=== PATIENT | male | born 1965 | race Caucasian/White ===

== ENCOUNTER → 2017-02-28 | Outpatient (CLI) | payer OTHER ==
--- NOTE | 2017-02-28 12:15 | REP ---
Clinical: Shortness of breath . Comparison: None . Technique: PA and lateral. Findings: The mediastinum and cardiac silhouette are normal. The lung yoon are clear and without acute consolidation, effusion, or pneumothorax. The skeletal structures are intact and normal. Impression: 1. No acute cardiopulmonary process. Signed by Skinny Barreto MD 02/28/2017 12:07 P
== END ==
LOC: M SMT 11:46
PROVIDERS: ATTEND Internal Medicine Pulmonary Disease
DX: R06.02 Shortness of breath (principal)

== ENCOUNTER → 2017-03-14 | Outpatient (CLI) | payer OTHER ==
[~2017-03-14] MED LIST: METHACHOLINE KIT (J7674) INH ONE
--- NOTE | 2017-03-14 15:45 | PFTRPT ---
Tech: Sol Barber [employer] Age: 51 Sex: Male Race: Height: 69.75 Inches Weight: 249.00 Lbs BSA: 2.29 Diagnosis: R06.02 METHACHOLINE CHALLENGE REPORT: ORDERING PROVIDER: Waldo Viera MD DATE OF SERVICE: 03/14/17 INTERPRETATION: The study was of excellent technical quality. Under protocol, methacholine was administered. At a dose of 2.5 mg (13.875 CDUs), a 48% decline in the FEV1 was noted. The PC20 of 0.51. Flow rates returned to baseline post bronchodilator administration. IMPRESSION: Positive methacholine challenge study. MTDD
== END ==
LOC: M CARPUL 14:41
PROVIDERS: ATTEND Internal Medicine Pulmonary Disease
DX: R06.02 Shortness of breath (principal); R94.2 Abnormal results of pulmonary function studies

== ENCOUNTER 2017-09-25 12:00 | Inpatient (IN) | payer MEDICARE, OTHER ==
[~2017-09-25] VITALS: Ht 180.3 cm; Wt 110.2 kg
[2017-09-25] MEDS ORDERED: SIMV20TA2 PO (12:12)
[2017-09-25] MEDS ORDERED: BUPR300T34 PO (12:12)
[2017-09-25] MEDS ORDERED: GABA-279 PO (12:12)
[2017-09-25] MEDS ORDERED: BREO1INH3 INH (12:12)
[2017-09-25] MEDS ORDERED: LEVOTAB10 PO (12:12)
[2017-09-25] MEDS ORDERED: OMEP40CA2 PO (12:12)
[2017-09-25] MEDS ORDERED: VITA10002 PO (12:12)
[2017-09-25] MEDS ORDERED: BISO5TAB5 PO (12:12)
[2017-09-25] MEDS ORDERED: QUIN20TA17 PO (12:12)
[2017-09-25] MEDS ORDERED: TRIA37.53 PO (12:12)
[2017-09-25] MEDS ORDERED: BUSP1TAB PO (12:12)
[2017-09-25] MEDS ORDERED: SILD50TA PO (12:12)
[2017-09-25 13:14] LABS: BASO % 0.3 % (0.0-1.0); EOS # 0.1 10^3/uL (0.0-0.50); EOS % 0.5 % (0.0-3.0); IMMATURE GRANULOCYTE % 0.3 % (0-0); LYMPH # 1.5 10^3/uL (1.5-4.5); LYMPH % 11.3 % (24.0-44.0); MEAN CORPUSCULAR HEMOGLOBIN 31.8 pg (27.0-33.0); MEAN CORPUSCULAR HGB CONC 33.9 g/dl (32.0-36.5); MEAN CORPUSCULAR VOLUME 93.7 fl (80.0-96.0); MONO # 1.4 10^3/uL (0.0-0.8); MONO % 10.1 % (0.0-5.0); NEUTROPHILS # 10.4 10^3/uL (1.8-7.7); NEUTROPHILS % 77.5 % (36.0-66.0); PLATELET COUNT, AUTOMATED 213 10^3/uL (150-450); RED CELL DISTRIBUTION WIDTH 13.1 % (11.5-14.5); WHITE BLOOD COUNT 13.4 10^3/uL (4.0-10.0)
[2017-09-25 13:31] LABS: ALBUMIN 3.5 GM/DL (3.2-5.2); ALBUMIN/GLOBULIN RATIO 0.76 (1.00-1.93); ALKALINE PHOSPHATASE 108 U/L (45-117); ALT/SGPT 33 U/L (12-78); ANION GAP 7 MEQ/L (8-16); AST/SGOT 17 U/L (7-37); BILIRUBIN,TOTAL 0.5 MG/DL (0.2-1.0); BLOOD UREA NITROGEN 11 MG/DL (7-18); CALCIUM LEVEL 8.5 MG/DL (8.5-10.1); CARBON DIOXIDE LEVEL 30 MEQ/L (21-32); CHLORIDE LEVEL 99 MEQ/L (98-107); CREATININE FOR GFR 1.15 MG/DL (0.70-1.30); GLOMERULAR FILTRATION RATE > 60.0 (>60); GLUCOSE, FASTING 100 MG/DL (70-105); POTASSIUM SERUM 3.7 MEQ/L (3.5-5.1); SODIUM LEVEL 136 MEQ/L (136-145); TOTAL PROTEIN 8.1 GM/DL (6.4-8.2)
[2017-09-25 13:36] LABS: ERYTHROCYTE SEDIMENTATION RATE 108 mm/hr (0-15)
--- NOTE | 2017-09-25 13:45 | REP ---
Right foot four views: There are no comparisons. There is soft tissue edema of the great toe and great toe metatarsal. There is afocal soft tissue air collection at the great toe MTP articulation along the plantar surface accompanied by soft tissue edema, compatible with ulcer. There are no lytic, blastic or destructive skeletal changes to suggest osteoarthritis. There is surgical arthrodesis with stabilization plate across the great toe MTP articulation and across the second digit TM T articulation. There is marked great toe TMT joint deformity chronic 2nd digit TMT joint deformity. deformity. Some of the orthopedic screws in the stabilization plate across the second digit TM T are fractured. There are lucencies throughout the tarsal ossicles of uncertain significance, possibly old orthopedic screw tracts. Signed by Dany Amador MD 09/25/2017 01:37 P
[2017-09-25] MEDS ORDERED: CEFEPIME HCL 2 GM in APPROPRIATE DILUENT 1 EA IV ONE (14:00)
[2017-09-25] MEDS ORDERED: MORPHINE 2 MG/ML 1ML SYRINGE IV PRN (14:30)
[2017-09-25] MEDS ORDERED: ACETAMINOPHEN TAB 650MG DOSE (2X325MG) PO PRN (14:30)
[2017-09-25] MEDS ORDERED: PERCOCET 5MG/325MG TAB PO PRN (14:30)
[2017-09-25] MEDS ORDERED: ONDANSETRON 4MG/2ML VIAL (J2405) IV PRN (14:30)
[2017-09-25] MEDS ORDERED: BISACODYL 5 MG TAB PO PRN (14:30)
[2017-09-25] MEDS ORDERED: LINEZOLID 600 MG in APPROPRIATE DILUENT 1 EA IV ONE (15:00)
[2017-09-25] MEDS ORDERED: GABA-282 PO (15:01)
[2017-09-25] MEDS ORDERED: ACET50TAOT PO (15:02)
--- NOTE | 2017-09-25 16:45 | HPE ---
DATE OF ADMISSION: 09/25/2017 PRIMARY CARE PROVIDER: Woody Mari CHIEF COMPLAINT: Right toe pain, ulcers, swelling, fever. HISTORY OF PRESENT ILLNESS: This is a 51-year-old male with a history of Charcot joint, nondiabetic, chronic osteomyelitis of the right foot and ankle and [place] [address] Mare Dougherty with reaction to vancomycin causing Red Man syndrome, who presents to the emergency room with increasing pain, discharge, swelling and redness of the right big toe, plantar area with involvement of the dorsal foot over the past 3 days, since Tuesday. The patient had a fever of 101 at home with chills, unable to ambulate due to severe pain with some serosanguineous drainage, prompting him to present to the emergency room. He denies any recent history of trauma and usually follows with an orthopedic surgeon in [place] at [facility]. The patient has had an open ulcer for the past 6 weeks, previously seen in early August by his surgeon, thought to be clean, did not require debridement at that time. In the emergency room, he was found to be afebrile. White count was 13,000, sedimentation rate of 108, and C-reactive protein of 10. The hospitalist service was called for admission for right toe cellulitis, rule out osteomyelitis due to chronic ulcer with history of methicillin resistant Staphylococcus aureus (MRSA) osteomyelitis in the past. PAST MEDICAL HISTORY: 1. Chronic osteomyelitis of the ankle and foot with MRSA. 2. Hypertension. 3. Depression. 4. Charcot joint of the foot, nondiabetic. 5. MRSA. 6. Hypertension. 7. Osteomyelitis of the right foot. 8. Reflux. 9. Nephrolithiasis. 10. Peripheral neuropathy. 11. Umbilical hernias with repair by Dr. Becker and Dr. Daley for the second surgery. PAST SURGICAL HISTORY: 1. Cholecystectomy. 2. Inguinal hernia repair. 3. Umbilical hernia repair. 4. Sinus surgery. 5. Gallbladder surgery. 6. Appendectomy. 7. Hernia repair. 8. Kidney stone. ADVERSE REACTION: VANCOMYCIN causing Red Man syndrome at [facility] in December 2012. HOME MEDICATIONS: - acetaminophen 1500 mg as needed for pain - bisoprolol 2.5 mg daily - bupropion 300 mg daily - buspirone 7.5 mg daily - B12 1000 mcg daily - gabapentin 300 mg twice a day - hydrochlorothiazide/triamterene one tablet daily, 37.5/25 mg - omeprazole 40 mg daily - quinapril 20 mg twice a day - simvastatin 20 mg at night - Breo Ellipta one inhalation daily - Levocetirizine 5 mg at night - sildenafil as needed SOCIAL HISTORY: Denies social alcohol use. Denies history of smoking. Currently on disability. FAMILY HISTORY: Father and mother are both . 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 REVIEW OF SYSTEMS: As per history of present illness. 12-point system otherwise negative. PHYSICAL EXAMINATION: VITAL SIGNS: Temperature 97.7, pulse 74, respiratory rate 18, blood pressure 130/86, 98% on room air. GENERAL: Awake, alert, oriented times three. Answering questions appropriately. No respiratory distress, cyanosis. Moist mucous membranes. No jugular venous distention (JVD) or thyromegaly. Pupils are round and reactive to light and accommodation. Extraocular muscles are intact. Normocephalic, atraumatic. Anicteric sclerae. No jaundice. NECK: Supple. Full range of motion. No cervical lymphadenopathy or thyromegaly. LUNGS: Clear to auscultation. No wheezing, rales or rhonchi. HEART: S1, S2. Sinus rhythm. No murmurs, rubs or gallops. ABDOMEN: Soft, nontender, nondistended. Positive bowel sounds times four quadrants. No rebound, guarding. EXTREMITIES: The patient has erythematous 2 cm ulcer noted on the plantar aspect of the first metatarsal joint. There is significant erythema and induration. Limited range of motion due to severe pain. Serosanguineous drainage of the site. LABORATORY DATA: White count 13.4, hemoglobin 15, hematocrit 46, platelet count 213. Sodium 136, potassium 3.7, chloride 99, bicarbonate 30, BUN 11, creatinine 1.15, glucose of 100, magnesium 2, calcium 8.5, total bilirubin 0.5, direct bilirubin 0.5, AST 17, ALT 33, alkaline phosphatase 108, C-reactive protein is 10, total protein 8.1, albumin 3.5. INR 1. IMAGING STUDIES: Foot x-ray showed soft tissue edema of the great toe and great toe metatarsal. Focal soft tissue air collection of the great toe metatarsophalangeal articulation along the plantar surface with soft tissue edema, compatible with ulcer. No lytic, blastic or dystrophic skeletal changes to suggest osteoarthritis. Surgical arthrocentesis with stabilization, plate across the great toe MTP articulation and across the second digit tarsometatarsal (TMT) articulation, marked great toe TMT joint deformity. Chronic second digit TMT joint deformity. Orthopedic screws and stabilization plate across the second digit TMT fracture. ASSESSMENT AND PLAN: This is a 51-year-old male with a history of chronic osteomyelitis of the ankle and foot, treated for methicillin resistant Staphylococcus aureus (MRSA) in [address] Mare Dougherty and orthopedic surgeon in [place]. Charcot joint deformity, nondiabetic, hypertension, depression, MRSA, inguinal hernia repair, kidney stones, who presents to the emergency room with fever, increasing erythema, redness, edema of right metatarsophalangeal joint with possible fractured plate from previous orthopedic stabilization. CURRENT ISSUES: 1. Right foot ulcer with cellulitic changes r/o abscess/osteomyelitis. Drill Press Operator, Dr. Slater, has been consulted for debridement and stabilization. Currently on Zyvox. Consult Dr. Mare Dougherty due to history of MRSA infection and chronic osteomyelitis, unable to get a MRI due to metal plate and screws in the right toe. 2. Hypertension. Resume home dose of Norvasc. May resume diuretics in the morning if no signs of dehydration. Continue on Zebeta. Well controlled at this time. 3. Depression. Resume Wellbutrin. 4. Dyslipidemia. Continue Simvastatin. 5. Charcot joint deformity of the right foot. DVT prophylaxis MTDD
[2017-09-25 17:35] VITALS: BP 128/78
--- NOTE | 2017-09-25 19:41 | ECGEPIP ---
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
[2017-09-25] MEDS: GABAPENTIN 300 MG CAP PO SCH (20:25)
[2017-09-25] MEDS: LINEZOLID 600MG TABLET (ZYVOX) PO SCH (20:25)
[2017-09-25] MEDS: SIMVASTATIN 20 MG TAB PO SCH (20:25)
[2017-09-25] MEDS: BREO ELLIPTA (PATIENT'S OWN MED) INH SCH (21:00)
[2017-09-25] MEDS: QUINAPRIL 20 MG TAB PO SCH (21:02)
[2017-09-25 22:00] VITALS: BP 117/61
[2017-09-26 06:00] VITALS: BP 117/69
[2017-09-26 07:03] LABS: BASO % 0.4 % (0.0-1.0); EOS # 0.2 10^3/uL (0.0-0.50); EOS % 2.1 % (0.0-3.0); IMMATURE GRANULOCYTE % 0.2 % (0-0); LYMPH # 1.5 10^3/uL (1.5-4.5); LYMPH % 16.2 % (24.0-44.0); MEAN CORPUSCULAR HEMOGLOBIN 31.5 pg (27.0-33.0); MEAN CORPUSCULAR HGB CONC 33.8 g/dl (32.0-36.5); MEAN CORPUSCULAR VOLUME 93.2 fl (80.0-96.0); MONO # 1.2 10^3/uL (0.0-0.8); NEUTROPHILS # 6.2 10^3/uL (1.8-7.7); NEUTROPHILS % 68.1 % (36.0-66.0); PLATELET COUNT, AUTOMATED 188 10^3/uL (150-450); WHITE BLOOD COUNT 9.1 10^3/uL (4.0-10.0)
[2017-09-26 07:31] LABS: ANION GAP 7 MEQ/L (8-16); BLOOD UREA NITROGEN 12 MG/DL (7-18); CALCIUM LEVEL 8.4 MG/DL (8.5-10.1); CARBON DIOXIDE LEVEL 29 MEQ/L (21-32); CHLORIDE LEVEL 101 MEQ/L (98-107); CREATININE FOR GFR 0.93 MG/DL (0.70-1.30); GLOMERULAR FILTRATION RATE > 60.0 (>60); GLUCOSE, FASTING 104 MG/DL (70-105); SODIUM LEVEL 137 MEQ/L (136-145)
[2017-09-26] MEDS: QUINAPRIL 20 MG TAB PO SCH ×2 (07:49→20:21)
[2017-09-26] MEDS: buPROPion **XL** TABLET 150MG (WELLBUTRIN XL) PO SCH (07:50)
[2017-09-26] MEDS: busPIRone 5 MG TAB PO SCH (07:50)
[2017-09-26] MEDS: CYANOCOBALAMIN 500 MCG TAB PO SCH (07:50)
[2017-09-26] MEDS: OMEPRAZOLE 20 MG CAP PO SCH (07:50)
[2017-09-26] MEDS: GABAPENTIN 300 MG CAP PO SCH ×2 (07:50→20:22)
[2017-09-26] MEDS: LINEZOLID 600MG TABLET (ZYVOX) PO SCH ×2 (07:51→20:21)
[2017-09-26] MEDS: BISOPROLOL FUM 2.5 MG PER 1/2TAB PO SCH (07:51)
[2017-09-26] MEDS: BREO ELLIPTA (PATIENT'S OWN MED) INH SCH ×2 (09:00→20:23)
[2017-09-26] MEDS: FLUTICASONE PROP 0.05% NASAL SPRAY 16 GM (FLONASE) SCH (09:00)
[2017-09-26] MEDS ORDERED: PROHANCE 279.3MG/ML 5ML VIAL (A9576) As Ordered ONE (12:49)
[2017-09-26] MEDS ORDERED: PROHANCE 279.3MG/ML 15ML VIAL (A9576) As Ordered ONE (12:49)
[2017-09-26 14:00] VITALS: BP 119/64
[2017-09-26] MEDS: SILVER SULFADIAZINE 1% CR 50 GM JAR TOP SCH ×2 (14:23→20:22)
--- NOTE | 2017-09-26 14:57 | CR ---
DATE OF CONSULTATION: 09/25/2017 CHIEF COMPLAINT: Patient seen for evaluation of a swollen and infected ulceration on the plantar surface of his right foot. The patient states he has had his ulceration for approximately 4-5 weeks. He has had a custom molded shoe fabricated approximately 4 weeks ago to help offload this ulcer on the plantar surface of his right foot. The patient has a history of surgical correction of his right foot, approximately 4 years ago where he had a 1st metatarsal phalangeal joint fusion as well as a second metatarsal cuneiform joint fusion. The patient states several days ago he notice a feeling of not feeling well with temperature. He subsequently went to the emergency room and was admitted for right foot infection. PAST MEDICAL HISTORY: History of chronic osteomyelitis with Methicillin-resistant Staphylococcus aureus (MRSA). Hypertension. Depression. Charcot joint disease. Reflux. Nephrolithiasis. Diabetic peripheral neuropathy. PAST SURGICAL HISTORY: Cholecystectomy. Inguinal hernia repair. Umbilical hernia repair. Sinus surgery. Gallbladder surgery. Appendectomy. Hernia repair. Kidney stone surgery. HOME MEDICATIONS: - acetaminophen - bisoprolol 2.5 mg daily - bupropion 300 mg daily - B12 - gabapentin 300 mg twice a day - hydrochlorothiazide/triamterene 37.5/25 - omeprazole 40 mg daily - quinapril 20 mg twice a day - simvastatin 20 mg at night - Breo Ellipta one inhalation daily - levocetirizine 5 mg at night SOCIAL HISTORY: Denies smoking. PHYSICAL EXAMINATION: Revealed an alert, well orientated 51-year-old male in no acute distress. Evaluation of his foot reveals an ulceration present on the plantar surface of the foot. There is some surrounding erythema around this ulceration. The ulceration is inferior to the first metatarsal head measuring 8 mm from medial to lateral, 12 mm from distal to proximal. It probes 11 mm down to the sesamoids. Hyperkeratotic rim measures approximately 6 mm. There is minimal discharge. Laboratory studies were reviewed revealing a white count of 13.4, ESR of 108, C-reactive protein of 10.4, and a glomerular filtration rate (GFR) greater than 60. X-rays were reviewed revealed air in the subcutaneous tissues inferior to the first metatarsal. There is no cystic erosions present of the sesamoid or 1st metatarsal phalangeal joint fusion site. There is fractured orthopedic screws through the plate, however the plate is intact. Plate is similarly intact over a 2nd metatarsal cuneiform joint effusions with fractured screws. There is a nonunion between the 2nd metatarsal cuneiform joint and the 1st metatarsal medial cuneiform with Charcot joint changes across the 1st, 2nd and 3rd metatarsal cuneiform joints. ASSESSMENT: 1. Infected stage IV ulceration, right foot, possible osteomyelitis. 2. Charcot joint deformity right foot. PLAN: After appropriate time out, informed consent was obtained. Utilizing a sterile scalpel and sterile curette, the ulcer was debrided through the subcutaneous tissues and culture was obtained. A sterile dressing was applied to the patient's right foot. The patient is presently pending an MRI of his right foot. We have discussed with the patient, depending on his MRI will determine his treatment options. The MRI is scheduled for tomorrow. His questions were answered. Thank you for this consultation.
--- NOTE | 2017-09-26 15:59 | REP ---
MRI RIGHT FOOT WITH AND WITHOUT CONTRAST: Multiple sequences obtained in the axial, coronal, and sagittal planes prior to and following the intravenous administration of 21 mL ProHance. Correlation made with plain films from 09/25/2017. Metallic plate and screws are seen in the distal first metatarsal and in the first proximal phalanx, as well as in the proximal half of the second metatarsal and adjacent middle cuneiform. This causes metallic artifact somewhat limiting evaluation of underlying osseous structures. No definite abnormal marrow signal is seen in this region that would suggest the presence of acute osteomyelitis. Hindfoot arthritic change is noted with subchondral marrow edema and cystic change along the talocalcaneal joint and at the tarsal/metatarsal joints. There are diffuse ill-defined edema in the soft tissues of the foot. There are areas of ill-defined enhancement in the medial forefoot compatible with cellulitis. No definite abscess collection is seen. Visualized tendons and ligaments appear intact with no tenosynovitis. IMPRESSION: Soft tissue edema and cellulitis predominantly medially in the forefoot. No definite abscess or evidence of osteomyelitis, although this study is somewhat limited due to metallic artifact in the region of metallic internal fixation in the first and second metatarsals. Signed by Dany Storm MD 09/26/2017 05:59 P
[2017-09-26 16:00] VITALS: BP 124/58
--- NOTE | 2017-09-26 17:16 | IPNPDOC ---
Text Note Date of Service The patient was seen on 09/26/17. NOTE Hospitalist Progress Note Subjective: The patient is sitting in a hospital bed, he is in no acute distress. He states that he has no complaints other than erythema, and, and ulceration of the right foot, along with fevers. He denies any chills, night sweats, rigors. He denies any shortness of breath, wheezing, palpitations, chest discomfort. He denies nausea, vomiting, diarrhea. The remainder of his review of systems is entirely negative. Objective: General: Awake, alert, oriented. He is in no acute distress. HEENT: Head normocephalic, atraumatic, sclera are nonicteric. Hearing is grossly intact to conversation. Respiratory: Clear to auscultation bilaterally with no wheezes, rales, or rhonchi. Cardiovascular: Regular rate and rhythm, with no rubs, gallops, or murmur. Abdomen: Soft, nontender, nondistended, no hepatosplenomegaly appreciated. Bowel sounds present. Extremities: 2+ pulses in the radial and dorsalis pedis bilaterally. He does have a right foot Charcot deformity. Right foot does have an ulcer now the head of the first metatarsal approximately 1 cm in diameter. Imaging: MRI does show soft tissue edema and cellulitis in the right forefoot, however there is no definite abscess or evidence of osteomyelitis, although the study is somewhat limited due to metallic artifact, please see report for full details. Microbiology: Preliminary wound cultures are positive for Staphylococcus aureus and Streptococcus group G, anaerobic culture is still pending. MRSA screen is negative. Blood cultures show no growth after 24 hours Assessment: 1. Cellulitis of the right foot 2. Pressure ulcer, right foot, likely the source of his infection 3. Hypertension 4. Depression 5. Dyslipidemia 6. Charcot deformity of right foot 7. Leukocytosis 8. Elevated ESR 9. DVT prophylaxis with Lovenox Plan: We'll continue his Zyvox at this time until susceptibilities are available. The patient has had 2 episodes of red man syndrome, and the second episode he was pretreated with Benadryl and the IV was ran quite slowly, and then the reaction occurred a few hours later anyway, there this cannot be used any longer. Sedimentation rate has significantly improved, leukocytosis has now resolved. If he does continue to improve clinically, then I suspect that we may be able to narrow his antibiotic when susceptibilities are available and he can continue treatment outpatient. My preceptor for this patient encounter was physically present in the building during the encounter and was fully available. As needed, all aspects of the patient interview, examination, medical decision making process, and medical care plan development were reviewed and approved by the preceptor. Preceptor is aware and concurs with the plan as stated in the body of this note and will attest to such by his/her cosignature. VS,Demetriusbone, I+O VS, Demetriusbone, I+O Laboratory Tests 09/26/17 06:16 Red Blood Count 4.44, Mean Corpuscular Volume 93.2, Mean Corpuscular Hemoglobin 31.5, Mean Corpuscular Hemoglobin Concent 33.8, Red Cell Distribution Width 13.0 , Neutrophils (%) (Auto) 68.1 H, Lymphocytes (%) (Auto) 16.2 L, Monocytes (%) ( Auto) 13.0 H, Eosinophils (%) (Auto) 2.1, Basophils (%) (Auto) 0.4, Neutrophils # (Auto) 6.2, Lymphocytes # (Auto) 1.5, Monocytes # (Auto) 1.2 H, Eosinophils # (Auto) 0.2, Basophils # (Auto) 0.0, Calcium Level 8.4 L Vital Signs Date Time Temp Pulse Resp B/P (MAP) Pulse Ox O2 Delivery O2 Flow Rate FiO2 09/26/17 17:00 98.5 09/26/17 16:00 74 16 124/58 (80) 97 Room Air ROSSY JAMES DO Sep 26, 2017 17:15
[2017-09-26] MEDS: SIMVASTATIN 20 MG TAB PO SCH (20:21)
[2017-09-26 22:00] VITALS: BP 131/68
[2017-09-27 06:00] VITALS: BP 116/57
[2017-09-27 06:55] LABS: MEAN CORPUSCULAR HEMOGLOBIN 31.9 pg (27.0-33.0); MEAN CORPUSCULAR HGB CONC 34.2 g/dl (32.0-36.5); MEAN CORPUSCULAR VOLUME 93.2 fl (80.0-96.0); PLATELET COUNT, AUTOMATED 209 10^3/uL (150-450); WHITE BLOOD COUNT 6.3 10^3/uL (4.0-10.0)
[2017-09-27 07:22] LABS: ANION GAP 7 MEQ/L (8-16); BLOOD UREA NITROGEN 14 MG/DL (7-18); CALCIUM LEVEL 8.4 MG/DL (8.5-10.1); CARBON DIOXIDE LEVEL 29 MEQ/L (21-32); CHLORIDE LEVEL 103 MEQ/L (98-107); CREATININE FOR GFR 0.93 MG/DL (0.70-1.30); GLOMERULAR FILTRATION RATE > 60.0 (>60); GLUCOSE, FASTING 109 MG/DL (70-105); POTASSIUM SERUM 4.1 MEQ/L (3.5-5.1); SODIUM LEVEL 139 MEQ/L (136-145)
[2017-09-27 07:30] LABS: ERYTHROCYTE SEDIMENTATION RATE 107 mm/hr (0-15)
[2017-09-27] MEDS: QUINAPRIL 20 MG TAB PO SCH ×2 (08:27→21:31)
[2017-09-27] MEDS: busPIRone 5 MG TAB PO SCH (08:27)
[2017-09-27] MEDS: CYANOCOBALAMIN 500 MCG TAB PO SCH (08:28)
[2017-09-27] MEDS: OMEPRAZOLE 20 MG CAP PO SCH (08:28)
[2017-09-27] MEDS: buPROPion **XL** TABLET 150MG (WELLBUTRIN XL) PO SCH (08:28)
[2017-09-27] MEDS: BISOPROLOL FUM 2.5 MG PER 1/2TAB PO SCH (08:28)
[2017-09-27] MEDS: GABAPENTIN 300 MG CAP PO SCH ×2 (08:28→21:32)
[2017-09-27] MEDS: LINEZOLID 600MG TABLET (ZYVOX) PO SCH ×2 (08:29→21:32)
[2017-09-27] MEDS: BREO ELLIPTA (PATIENT'S OWN MED) INH SCH ×2 (08:33→21:00)
[2017-09-27] MEDS: FLUTICASONE PROP 0.05% NASAL SPRAY 16 GM (FLONASE) SCH (08:33)
[2017-09-27] MEDS: SILVER SULFADIAZINE 1% CR 50 GM JAR TOP SCH ×2 (08:34→21:33)
[2017-09-27] MEDS: ENOXAPARIN 40 MG/0.4 ML SYRINGE (J1650) SC SCH (08:36)
--- NOTE | 2017-09-27 10:58 | IPN ---
DATE OF SERVICE: 09/27/2017 SUBJECTIVE: The patient tells me that he is feeling well and has no complaints at this time. He tells me that he did have a fever overnight. OBJECTIVE: Vital signs: T-max 101.3, temperature 98.9, pulse 70, respiratory rate 18, blood pressure 115/57, oxygen saturation 97% on room air. General: He is a pleasant, middle-aged man lying in bed comfortably at a 40 degree angle in no distress. HEENT: Cranial nerves II-XII grossly intact. He has moist mucous membranes and elevation of CVP. Cardiovascular: S1, S2, regular. Respiratory exam: Clear. Abdominal exam: Grossly obese. Extremities: No clubbing, cyanosis or edema. He has chronic deformity on the distal lower extremity of the Charcot joint. He has recently debrided first metatarsal ulcer which is erythematous and swollen and malodorous. LABORATORY STUDIES: WBC 6.3, hemoglobin 14, platelet count 209. Erythrocyte sedimentation rate 107. Chemistry panel: Sodium 139, potassium 4.1, chloride 103, bicarbonate 29, BUN 14, creatinine 0.9. Microbiology: Wound cultures preliminarily positive for staphylococcus aureus and group G strep. Sensitive to Bactrim. An MRI of the foot completed yesterday revealed cellulitis. No definite abscess or evidence of osteomyelitis. ASSESSMENT AND PLAN: This is a 51-year-old man with cellulitis of the right first metatarsal. PROBLEMS: 1. Cellulitis of the right first metatarsal. MRI is negative. Dr. Slater, podiatry help is greatly appreciated. The patient is status post debridement. The patient is afebrile. We are awaiting final cultures and sensitivities from Dr. Slater's wound culture. I suspect if there is staphylococcus and strep sensitive to Bactrim, he could likely be transitioned to this and be discharged home to complete a 10 day course of oral antibiotics as early as tomorrow provided his fever resolves. 2. Hypertension. Continue with bisoprolol and quinapril. 3. Anxiety. Continue with Wellbutrin and BuSpar. 4. B12 deficiency. Continue with supplementation. 5. Gastroesophageal reflux disease, continue with omeprazole. 6. Neuropathy, continue with Neurontin. 7. Dyslipidemia. The patient is on Zocor. DISPOSITION: Likely home within the next 24-48 hours.
[2017-09-27 16:00] VITALS: BP 147/80
[2017-09-27] MEDS: SIMVASTATIN 20 MG TAB PO SCH (21:32)
[2017-09-27 22:00] VITALS: BP 123/74
[2017-09-28 06:00] VITALS: BP 117/71
[2017-09-28 06:57] LABS: MEAN CORPUSCULAR HEMOGLOBIN 31.5 pg (27.0-33.0); MEAN CORPUSCULAR HGB CONC 34.1 g/dl (32.0-36.5); MEAN CORPUSCULAR VOLUME 92.1 fl (80.0-96.0); PLATELET COUNT, AUTOMATED 216 10^3/uL (150-450); RED CELL DISTRIBUTION WIDTH 12.8 % (11.5-14.5); WHITE BLOOD COUNT 6.1 10^3/uL (4.0-10.0)
[2017-09-28] MEDS ORDERED: SILV50CR TOP (06:57)
[2017-09-28] MEDS ORDERED: BACT800T5 PO (06:57)
[2017-09-28 07:06] LABS: ANION GAP 7 MEQ/L (8-16); BLOOD UREA NITROGEN 11 MG/DL (7-18); CALCIUM LEVEL 8.4 MG/DL (8.5-10.1); CARBON DIOXIDE LEVEL 30 MEQ/L (21-32); CHLORIDE LEVEL 105 MEQ/L (98-107); CREATININE FOR GFR 0.82 MG/DL (0.70-1.30); GLOMERULAR FILTRATION RATE > 60.0 (>60); GLUCOSE, FASTING 96 MG/DL (70-105); POTASSIUM SERUM 4.2 MEQ/L (3.5-5.1); SODIUM LEVEL 142 MEQ/L (136-145)
[2017-09-28 07:48] LABS: ERYTHROCYTE SEDIMENTATION RATE 35 mm/hr (0-15)
--- NOTE | 2017-09-28 08:06 | IPN ---
DATE: 09/26/2017 TIME: 7:08 p.m. CHIEF COMPLAINT: The patient is seen today for evaluation of an ulceration with infection plantar aspect of the right foot. PHYSICAL EXAMINATION: The bandage was removed today. There is no active drainage from the wound. There is some serous discharge noted on the bandage. The ulcer measures approximately 9 mm from medial to lateral. It is 13 mm from distal to proximal. Upon compression of the wound, there is no abscess formation or drainage from the wound itself. MRI was reviewed which was negative for osteomyelitis. The mycobacteriology studies were reviewed, revealing growth of Staphylococcus aureus and group G strep, which is similar to the swab culture taken from the foot on the same day. The staphylococcus is resistant to penicillin G. The tissue culture reveals growth of Staphylococcus aureus and group G strep, but is not plated for sensitivity. There is anaerobic culture pending. ASSESSMENT: Improved stage IV ulceration plantar surface right foot, resolving cellulitis. PLAN: We discussed with the patient being converted to oral antibiotics once his cultures are available. The patient has an excellent diabetic shoe which is less than a month old. This can be offloaded to additionally offload his ulcer. His questions were answered.
[2017-09-28] MEDS: OMEPRAZOLE 20 MG CAP PO SCH (09:05)
[2017-09-28] MEDS: busPIRone 5 MG TAB PO SCH (09:05)
[2017-09-28] MEDS: CYANOCOBALAMIN 500 MCG TAB PO SCH (09:05)
[2017-09-28] MEDS: GABAPENTIN 300 MG CAP PO SCH (09:05)
[2017-09-28] MEDS: LINEZOLID 600MG TABLET (ZYVOX) PO SCH (09:06)
[2017-09-28] MEDS: BISOPROLOL FUM 2.5 MG PER 1/2TAB PO SCH (09:06)
[2017-09-28] MEDS: buPROPion **XL** TABLET 150MG (WELLBUTRIN XL) PO SCH (09:06)
[2017-09-28] MEDS: BREO ELLIPTA (PATIENT'S OWN MED) INH SCH (09:09)
[2017-09-28] MEDS: SILVER SULFADIAZINE 1% CR 50 GM JAR TOP SCH (09:09)
[2017-09-28] MEDS: FLUTICASONE PROP 0.05% NASAL SPRAY 16 GM (FLONASE) SCH (09:10)
[2017-09-28] MEDS: ENOXAPARIN 40 MG/0.4 ML SYRINGE (J1650) SC SCH (09:15)
[2017-09-28 10:47] VITALS: BP 123/77
[2017-09-28] MEDS: QUINAPRIL 20 MG TAB PO SCH (10:47)
--- NOTE | 2017-09-28 14:07 | DS.PDOC ---
Discharge Summary General Date of Admission Sep 25, 2017 at 14:29 Date of Discharge Sep Attending Physician: DEBORAH GOSS DO Specialist/Consultants Involve: Uriel Slater Specialist/Consultants Involve PCP: Woody Mari / Kathryn Saldana PA-C Discharge Summary CONSULTS: Uriel Slater PROCEDURES: None COMPLICATIONS: None ADMISSION / DISCHARGE DIAGNOSIS: 1. Cellulitis of the right first metatarsal. MRI is negative for Osteomyelitis. 2. Hypertension 3. Anxiety 4. B12 deficiency 5. Gastroesophageal reflux disease 6. Neuropathy 7. Dyslipidemia. BRIEF HOSPITAL COURSE: 51 yo male admitted for cellulitis involving area of right foot over known charcot joint. 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 Admitted for IV antibiotics, Podiatry consult and MRI. MRI was negative for osteomyelitis, WBC normalized, downward trend of ESR/CRP noted, wound cultures Staph Aureus, Group G Strep, and Strept Infanarius. Patient remained afebrile and wound/cellulitis seemed to improved with treatment and wound dressings using Silvadene cream. Appreciated input from . Antibiotics de-escalated to Bactrim DS bid for 10 more days, and appropriate follow up appointments were made. PHYSICAL EXAMINATION ON DISCHARGE: VITAL SIGNS: Please see below. GENERAL: NAD, A&OX3 HEENT: PERRLA, throat clear, neck supple, no JVD CARDIOVASCULAR EXAMINATION: RRR RESPIRATORY EXAMINATION: CTA bilaterally ABDOMINAL EXAMINATION: soft, NT/ND, normoactive bowel sounds EXTREMITIES: no edema no calf tenderness SKIN: intact, wound non draining and erythema almost completely resolved. NEUROLOGICAL EXAMINATION: CN'S II-XII grossly intact PSYCHIATRIC EXAMINATION: stable DISCHARGE MEDICATIONS: See below DISCHARGE CONDITION: GOOD DISPOSITION: DISCHARGE TO HOME DISCHARGE INSTRUCTIONS: Activity: As tolerated Diet: Regular Follow up: Dr. Sheppard tomorrow, Dr. Slater one week and PCP: Kathryn Saldana PA-C 1-2 weeks Seek medical attention should symptoms worsen or progress. Voiced understanding by patient and/or caregiver. TRANSITION OF CARE ISSUES: re-eval of wound and foot by Dr. Sheppard and Dr. Slater respectively. TIME SPENT ON DISCHARGE: greater than 35 minutes Please CC: Dr. Silver Saldana PA-C Vital Signs/I&Os Vital Signs Date Time Temp Pulse Resp B/P (MAP) Pulse Ox O2 Delivery O2 Flow Rate FiO2 09/28/17 10:47 123/77 09/28/17 09:06 73 09/28/17 06:00 98.8 16 99 Room Air I&O- Last 24 Hours up to 6 AM 09/28/17 06:00 Intake Total 2560 ml Output Total 300 ml Balance 2260 ml Laboratory Data Labs 24H Laboratory Tests 2 09/28/17 06:03: Nucleated Red Blood Cells % (auto) 0.0, Erythrocyte Sedimentation Rate 35H, Anion Gap 7L, Glomerular Filtration Rate > 60.0, Blood Urea Nitrogen 11, Creatinine 0.82, Sodium Level 142, Potassium Level 4.2, Chloride Level 105, Carbon Dioxide Level 30, Calcium Level 8.4L CBC/BMP Laboratory Tests 09/28/17 06:03 Red Blood Count 4.45, Mean Corpuscular Volume 92.1, Mean Corpuscular Hemoglobin 31.5, Mean Corpuscular Hemoglobin Concent 34.1, Red Cell Distribution Width 12.8 , Calcium Level 8.4 L Microbiology Microbiology 09/25/17 Blood Culture - Preliminary, Resulted No Growth after 72 hours. All specime... 09/25/17 Blood Culture - Preliminary, Resulted No Growth after 72 hours. All specime... 09/25/17 MRSA Screen - Final, Complete 09/25/17 Wound Culture - Preliminary, Resulted Staphylococcus Aureus Streptococcus Group G Streptococcus Infantarius Infa 09/25/17 Anaerobic Culture, Resulted Pending 09/25/17 Wound Culture - Final, Complete Staphylococcus Aureus Streptococcus Group G Streptococcus Infantarius Infa Discharge Medications Scheduled Bisoprolol Fumarate (Bisoprolol Fumarate) 5 Mg Tab, 2.5 MG PO DAILY, (Reported) Bupropion HCl (Bupropion HCl Xl) 300 Mg Tab, 300 MG PO DAILY, (Reported) Buspirone HCl (Buspirone HCl) 7.5 Mg Tab, 7.5 MG PO DAILY, (Reported) Cyanocobalamin (Vitamin B-12) 1,000 Mcg Tab, 1,000 MCG PO DAILY, (Reported) Fluticasone/Vilanterol (Breo Ellipta 200-25 Mcg/INH) 1 Inh Inh, 1 PUFF INH DAILY , (Reported) Gabapentin (Gabapentin) 300 Mg Cap, 300 MG PO BID, (Reported) Hydrochlorothiazide W/Triamter (Triamterene/Hydrochloroth 37.5-25 mg) 1 Cap Cap , 1 TAB PO DAILY, (Reported) Levocetirizine Hydrochloride (Levocetirizine Dihydrochl) 5 Mg Tab, 5 MG PO QHS, (Reported) Omeprazole (Omeprazole) 40 Mg Cap, 40 MG PO DAILY, (Reported) Quinapril Hcl (Quinapril HCl) 20 Mg Tab, 20 MG PO BID, (Reported) Silver Sulfadiazine (Ssd) 1 % Cre, 1 GM TOP BID Simvastatin (Simvastatin) 20 Mg Tab, 20 MG PO QHS, (Reported) Trimethoprim/Sulfamethoxazole (Bactrim Ds 800-160 mg) 1 Tab Tab, 1 TAB PO BID Scheduled PRN Acetaminophen (Acetaminophen) 500 Mg Tab, 1,500 MG PO for PAIN, (Reported) Sildenafil Citrate (Viagra) 50 Mg Tab, 50 MG PO for ERECTILE DYSFUNCTION, ( Reported) Allergies Coded Allergies: Vancomycin (Verified Allergy, Unknown, 03/11/17) DEBORAH GOSS DO Sep 28, 2017 14:07
== END 2017-09-28 11:00 | disposition home or self-care (01) | DRG 579 ==
LOC: M ED 12:00 → M ED INP 14:29 → M MS5PR 17:24
PROVIDERS: ADMIT General Practice; ATTEND Internal Medicine
PROC: 0JDQ0ZZ Extraction of Right Foot Subcutaneous Tissue and Fascia, Open Approach (ICD-10-PCS; principal; 2017-09-25)
DX: L03.115 Cellulitis of right lower limb (principal); L89.894 Pressure ulcer of other site, stage 4; A52.16 Charcot's arthropathy (tabetic); I10 Essential (primary) hypertension; B95.61 Methicillin susceptible Staphylococcus aureus infection as the cause of diseases classified elsewhere; B95.4 Other streptococcus as the cause of diseases classified elsewhere; F32.9 Major depressive disorder, single episode, unspecified; G62.9 Polyneuropathy, unspecified; K21.9 Gastro-esophageal reflux disease without esophagitis; Z90.49 Acquired absence of other specified parts of digestive tract; Z88.1 Allergy status to other antibiotic agents; Z79.899 Other long term (current) drug therapy

== ENCOUNTER 2021-04-09 16:11 | Outpatient (CLI) | payer BC ==
[~2021-04-09] VITALS: Ht 180.3 cm; Wt 102.3 kg
[~2021-04-09 16:11] MED LIST changes: +ACET500T15 PO; +BACT800T5 PO; +BEZLOTOXUMAB 1,000 MG in NS 100 ML IV ONE; +BISO5TAB14 PO; +BREO1INH3 INH; +BUPR300T92 PO; +BUSP1TAB PO; +CYAN100049 PO; +GABA-1171 PO; +GABA-282 PO; +LEVOTAB10 PO; -METHACHOLINE KIT (J7674) INH ONE; +OMEP40CA4 PO; +QUIN1TAB3 PO; +SILD50TA PO; +SILV50CR TOP; +SIMV20TA22 PO; +TRIA37.53 PO
[2021-04-09 16:15] VITALS: BP 125/73
[2021-04-09 17:53] VITALS: BP 126/72
== END 2021-04-09 18:00 | disposition home or self-care (01) ==
LOC: M INFU 16:11
PROVIDERS: ATTEND Internal Medicine Infectious Disease
DX: A04.71 Enterocolitis due to Clostridium difficile, recurrent (principal); Z88.1 Allergy status to other antibiotic agents
CPT/HCPCS: 96365; J0565